=== PATIENT | female | born 1950 | race Caucasian/White ===

== ENCOUNTER → 2017-09-23 | Outpatient (CLI) | payer OTHER ==
[~2017-09-23] MED LIST: ALBU8.5H3 IH; AMLO5TAB2 PO; ASPI-555 PO; BUPR100T13 PO; CALC1TAB2 PO; ESTR42.53 VG; FLUT16H NS; LEVO125T11 PO; LOVA40TA2 PO; OMEP20CA10 PO; ROPI0.5T PO
== END ==
LOC: RAH 09:37
PROVIDERS: ATTEND Internal Medicine
DX: Z12.31 Encounter for screening mammogram for malignant neoplasm of breast (principal)
CPT/HCPCS: 77067

== ENCOUNTER → 2018-09-25 | Outpatient (CLI) | payer OTHER ==
[~2018-09-25] MED LIST changes: -AMLO5TAB2 PO; +AMLO5TAB9 PO
== END | disposition home or self-care (01) ==
LOC: RAH 13:16
PROVIDERS: ATTEND Internal Medicine
DX: Z12.31 Encounter for screening mammogram for malignant neoplasm of breast (principal)
CPT/HCPCS: 77067

== ENCOUNTER → 2018-10-03 | Outpatient (CLI) | payer OTHER | END | disposition home or self-care (01) | LOC: RAH 12:48 | PROVIDERS: ATTEND Internal Medicine | DX: N60.02 Solitary cyst of left breast (principal); N60.01 Solitary cyst of right breast | CPT/HCPCS: 76641 ==

== ENCOUNTER → 2018-12-06 | Outpatient (CLI) | payer OTHER | END | disposition home or self-care (01) | LOC: RAH 11:23 | PROVIDERS: ATTEND Internal Medicine | DX: R09.89 Other specified symptoms and signs involving the circulatory and respiratory systems (principal) | CPT/HCPCS: 93880 ==

== ENCOUNTER → 2019-09-26 | Outpatient (CLI) | payer OTHER ==
[~2019-09-26] MED LIST changes: -OMEP20CA10 PO; +OMEP20CA12 PO
== END | disposition home or self-care (01) ==
LOC: RAH 09:16
PROVIDERS: ATTEND Internal Medicine
DX: Z12.31 Encounter for screening mammogram for malignant neoplasm of breast (principal)
CPT/HCPCS: 77067

== ENCOUNTER 2020-11-03 18:55 | Emergency (ER) | payer MEDICARE, OTHER ==
[~2020-11-03 18:55] MED LIST changes: +AMLO-257 PO; -AMLO5TAB9 PO; -ASPI-555 PO; +ASPI-556 PO
[2020-11-03] MEDS ORDERED: ONDANSETRON HCL 4 MG/2 ML VIAL ONE (20:57)
[2020-11-03] MEDS ORDERED: MORPHINE SULFATE 2 MG/ML 1ML SYG ONE (20:58)
== END 2020-11-03 21:12 | disposition home or self-care (01) ==
LOC: EDH 18:55
DX: S42.202A Unspecified fracture of upper end of left humerus, initial encounter for closed fracture (principal); Z88.0 Allergy status to penicillin; Z88.8 Allergy status to other drugs, medicaments and biological substances; Z88.6 Allergy status to analgesic agent; W18.39XA Other fall on same level, initial encounter; Y93.01 Activity, walking, marching and hiking; Y92.098 Other place in other non-institutional residence as the place of occurrence of the external cause; Y99.8 Other external cause status
CPT/HCPCS: 73030; 96374; 96375; 99284; J2405

== ENCOUNTER → 2021-11-27 | Outpatient (CLI) | payer MEDICARE | LOC: RAH 09:34 | PROVIDERS: ATTEND Internal Medicine | DX: N60.02 Solitary cyst of left breast (principal) | CPT/HCPCS: 76641 ==

== ENCOUNTER → 2021-12-08 | Outpatient (CLI) | payer MEDICARE ==
[~2021-12-08] MED LIST changes: +LIDOCAINE HCL 1% 20 ML VIAL ONE
[2021-12-08 10:44] LABS: INR 0.94 (0.85-1.15); PROTHROMBIN TIME 10.3 SEC (9.6-11.6)
[2021-12-08 10:46] LABS: PARTIAL THROMBOPLASTIN TIME 27.9 SEC (26.3-35.5)
== END | disposition home or self-care (01) ==
LOC: RAH 09:22
PROVIDERS: ATTEND Internal Medicine
DX: N60.02 Solitary cyst of left breast (principal); Z79.01 Long term (current) use of anticoagulants; Z79.899 Other long term (current) drug therapy
CPT/HCPCS: 19000; 36415; 85610; 85730; 87071; 87205; 88112; 88305

== ENCOUNTER → 2022-09-03 | Outpatient (CLI) | payer MEDICARE ==
[~2022-09-03] MED LIST changes: -LIDOCAINE HCL 1% 20 ML VIAL ONE
[2022-09-03 12:02] LABS: CREATININE 0.8 mg/dL (0.5-1.5)
== END | disposition home or self-care (01) ==
LOC: LAB 11:18
PROVIDERS: ATTEND Internal Medicine Cardiovascular Disease
DX: I65.23 Occlusion and stenosis of bilateral carotid arteries (principal)
CPT/HCPCS: 36415; 82565; 84520

== ENCOUNTER → 2022-09-06 | Outpatient (CLI) | payer MEDICARE ==
[~2022-09-06] MED LIST changes: +IOHEXOL-350 50ML VIAL IV ONE
== END | disposition home or self-care (01) ==
LOC: RAH 10:32
PROVIDERS: ATTEND Internal Medicine Cardiovascular Disease
DX: I65.23 Occlusion and stenosis of bilateral carotid arteries (principal)
CPT/HCPCS: 70498; Q9967

== ENCOUNTER → 2023-01-24 | Outpatient (CLI) | payer MEDICARE ==
[~2023-01-24] MED LIST changes: -IOHEXOL-350 50ML VIAL IV ONE
== END | disposition home or self-care (01) ==
LOC: RAH 11:34
PROVIDERS: ATTEND Internal Medicine
DX: Z12.31 Encounter for screening mammogram for malignant neoplasm of breast (principal)
CPT/HCPCS: 77067

== ENCOUNTER 2023-06-15 16:13 | Observation (INO) | payer MEDICARE ==
[~2023-06-15] VITALS: Ht 165.1 cm; Wt 79.1 kg
[2023-06-15 17:46] LABS: BASOPHILS # (AUTO) 0.02 K/uL (0.00-0.20); BASOPHILS % (AUTO) 0.3 % (0.0-5.0); EOSINOPHILS # (AUTO) 0.18 K/uL (0.00-0.70); EOSINOPHILS % (AUTO) 2.3 % (0.0-8.0); HEMATOCRIT 30.8 % (36-48); IMMATURE GRANULOCYTE ABSOLUTE 0.02 K/uL (0-1); LYMPHOCYTES # (AUTO) 1.3 K/uL (1.0-4.8); LYMPHOCYTES % (AUTO) 16.8 % (21.0-51.0); MEAN CORPUSCULAR HEMOGLOBIN 30.2 pg (27.0-33.0); MEAN CORPUSCULAR HGB CONC 33.8 g/dL (32.0-36.0); MEAN CORPUSCULAR VOLUME 89.5 fL (79-99); MONOCYTES # (AUTO) 0.7 K/uL (0.1-1.0); MONOCYTES % (AUTO) 8.5 % (3.0-13.0); NEUTROPHILS # (AUTO) 5.5 K/uL (1.8-7.7); NEUTROPHILS % (AUTO) 71.8 % (40.0-77.0); PLATELET COUNT (AUTO) 293 K/uL (130-400); RED BLOOD CELL COUNT(AUTO) 3.44 MIL/uL (4.00-5.50); RED CELL DISTRIBUTION WIDTH 12.5 % (11.0-15.5); WHITE BLOOD COUNT (AUTO) 7.7 K/uL (4.8-10.8)
[2023-06-15 18:02] LABS: CREATININE 0.8 mg/dL (0.5-1.5); POTASSIUM 3.8 mmol/L (3.5-5.1)
[2023-06-15 18:11] LABS: ALBUMIN 3.4 g/dL (3.5-5.0); BILIRUBIN,TOTAL 0.2 mg/dL (0.2-1.0); TOTAL PROTEIN, SERUM 7.1 g/dL (6.0-8.3)
[2023-06-15] MEDS ORDERED: ONDANSETRON 4MG INJ IVP PRN (18:30)
[2023-06-15] MEDS ORDERED: ACETAMINOPHEN 325 MG TAB PO PRN (18:30)
[2023-06-15 21:30] VITALS: BP 175/83; PULSE 60; RESP 18
[2023-06-15 21:35] VITALS: O2SAT 99
[2023-06-15] MEDS ORDERED: LEVO125C4 PO (21:55)
[2023-06-15] MEDS ORDERED: ROSU20TA73 PO (21:55)
[2023-06-15] MEDS ORDERED: ALEN35TA53 PO (21:55)
[2023-06-15] MEDS ORDERED: MONT-39 PO (21:55)
[2023-06-15] MEDS ORDERED: APIX5TAB PO (21:55)
[2023-06-15] MEDS ORDERED: METO-409 PO (21:55)
[2023-06-15] MEDS ORDERED: SERT-440 PO (21:56)
[2023-06-15 22:45] VITALS: BP 139/65; PULSE 70; RESP 20
[2023-06-16 00:20] VITALS: BP 137/62; PULSE 60; RESP 18
[2023-06-16 03:58] VITALS: BP 137/63; PULSE 54; RESP 18
[2023-06-16 05:38] LABS: BASOPHILS # (AUTO) 0.02 K/uL (0.00-0.20); BASOPHILS % (AUTO) 0.4 % (0.0-5.0); EOSINOPHILS # (AUTO) 0.17 K/uL (0.00-0.70); EOSINOPHILS % (AUTO) 3.2 % (0.0-8.0); HEMATOCRIT 31.5 % (36-48); IMMATURE GRANULOCYTE ABSOLUTE 0.01 K/uL (0-1); LYMPHOCYTES # (AUTO) 1.7 K/uL (1.0-4.8); LYMPHOCYTES % (AUTO) 32.1 % (21.0-51.0); MEAN CORPUSCULAR HEMOGLOBIN 30.2 pg (27.0-33.0); MEAN CORPUSCULAR VOLUME 91.6 fL (79-99); MONOCYTES # (AUTO) 0.5 K/uL (0.1-1.0); MONOCYTES % (AUTO) 10.1 % (3.0-13.0); NEUTROPHILS # (AUTO) 2.9 K/uL (1.8-7.7); PLATELET COUNT (AUTO) 279 K/uL (130-400); RED BLOOD CELL COUNT(AUTO) 3.44 MIL/uL (4.00-5.50); RED CELL DISTRIBUTION WIDTH 12.3 % (11.0-15.5); WHITE BLOOD COUNT (AUTO) 5.4 K/uL (4.8-10.8)
[2023-06-16 05:55] LABS: CREATININE 0.7 mg/dL (0.5-1.5); POTASSIUM 3.5 mmol/L (3.5-5.1)
[2023-06-16 08:00] VITALS: BP 146/67; PULSE 56; RESP 17; O2SAT 94
[2023-06-16] MEDS ORDERED: OMEP40CA21 PO (08:47)
[2023-06-16] MEDS ORDERED: BRIN15DR4 OP (08:47)
[2023-06-16] MEDS ORDERED: ESTR42.53 VG (08:47)
[2023-06-16] MEDS ORDERED: ALBU90AE IH (08:47)
[2023-06-16] MEDS ORDERED: LEVO125C4 PO ×2 (08:48→14:29)
[2023-06-16] MEDS ORDERED: BRIM155OS OD (08:49)
[2023-06-16] MEDS ORDERED: METOPROLOL TARTRATE 50 MG TAB PO SCH (09:00)
[2023-06-16] MEDS ORDERED: NON-FORMULARY MEDICATION 1 EACH (Omeprazole 40 MG) PO PRN (09:30)
[2023-06-16] MEDS ORDERED: PANTOPRAZOLE 40 MG TAB DR PO PRN (10:30)
[2023-06-16] MEDS ORDERED: ALBUTEROL SULFATE IH PRN (10:30)
[2023-06-16 11:17] VITALS: BP 150/65; PULSE 61; RESP 17
[2023-06-16] MEDS ORDERED: VIT1CAPS47 PO (14:29)
[2023-06-16] MEDS ORDERED: OMEP20CA12 PO (14:29)
[2023-06-16] MEDS ORDERED: METOPROLOL SUCCINATE 50 MG TAB.SR.24H PO SCH (21:00)
[2023-06-16] MEDS ORDERED: NON-FORMULARY MEDICATION 1 EACH (Metoprolol Succinate 1 TAB) PO SCH (21:00)
[2023-06-16] MEDS ORDERED: MONTELUKAST SODIUM 10 MG TAB PO SCH (21:00)
[2023-06-16] MEDS ORDERED: APIXABAN 5 MG TABLET PO SCH (21:00)
[2023-06-16] MEDS ORDERED: NON-FORMULARY MEDICATION 1 EACH (Rosuvastatin Calcium 1 TAB) PO SCH (21:00)
[2023-06-16] MEDS ORDERED: CRESTOR 20MG PO SCH (21:00)
[2023-06-16] MEDS ORDERED: NON-FORMULARY MEDICATION 1 EACH (Sertraline HCl 1 TAB) PO SCH (21:00)
[2023-06-17] MEDS ORDERED: LEVOTHYROXINE 125 MCG TABLET PO SCH (06:30)
[2023-06-17] MEDS ORDERED: SERTRALINE HCL 50 MG TABLET PO SCH (09:00)
[2023-06-18] MEDS ORDERED: LEVOTHYROXINE 125 MCG TABLET PO SCH (06:30)
[2023-06-23] MEDS ORDERED: ALENDRONATE SODIUM 35 MG TAB PO SCH (09:00)
== END 2023-06-16 14:55 | disposition home or self-care (01) ==
LOC: EDH 16:13 → EDHIP 18:08 → 3BH 21:13
PROVIDERS: ADMIT Internal Medicine; ATTEND Internal Medicine
DX: S00.93XA Contusion of unspecified part of head, initial encounter (principal); S06.0XAA Concussion with loss of consciousness status unknown, initial encounter; I48.19 Other persistent atrial fibrillation; J45.909 Unspecified asthma, uncomplicated; K21.9 Gastro-esophageal reflux disease without esophagitis; I25.10 Atherosclerotic heart disease of native coronary artery without angina pectoris; E78.5 Hyperlipidemia, unspecified; G47.33 Obstructive sleep apnea (adult) (pediatric); I13.10 Hypertensive heart and chronic kidney disease without heart failure, with stage 1 through stage 4 chronic kidney disease, or unspecified chronic kidney disease; E11.22 Type 2 diabetes mellitus with diabetic chronic kidney disease; M81.0 Age-related osteoporosis without current pathological fracture; N18.9 Chronic kidney disease, unspecified; W18.30XA Fall on same level, unspecified, initial encounter; Y93.89 Activity, other specified; Y92.89 Other specified places as the place of occurrence of the external cause; Y99.8 Other external cause status; Z79.01 Long term (current) use of anticoagulants; Z79.82 Long term (current) use of aspirin; Z88.0 Allergy status to penicillin; Z95.818 Presence of other cardiac implants and grafts; Z79.899 Other long term (current) drug therapy
CPT/HCPCS: 96374; 99284; 84484; 80053; 85025 ×2; 36415 ×2; 70450 ×2; 80048; G0378 ×21; J2405

== ENCOUNTER 2023-06-17 07:38 | Day surgery (SDC) | payer MEDICARE ==
[2023-06-14 10:19] LABS: BASOPHILS # (AUTO) 0.03 K/uL (0.00-0.20); BASOPHILS % (AUTO) 0.6 % (0.0-5.0); EOSINOPHILS # (AUTO) 0.19 K/uL (0.00-0.70); EOSINOPHILS % (AUTO) 3.7 % (0.0-8.0); HEMATOCRIT 33.7 % (36-48); IMMATURE GRANULOCYTE ABSOLUTE 0.02 K/uL (0-1); LYMPHOCYTES # (AUTO) 1.5 K/uL (1.0-4.8); MEAN CORPUSCULAR HEMOGLOBIN 30.7 pg (27.0-33.0); MEAN CORPUSCULAR HGB CONC 33.2 g/dL (32.0-36.0); MEAN CORPUSCULAR VOLUME 92.3 fL (79-99); MONOCYTES # (AUTO) 0.5 K/uL (0.1-1.0); MONOCYTES % (AUTO) 10.4 % (3.0-13.0); NEUTROPHILS % (AUTO) 56.9 % (40.0-77.0); PLATELET COUNT (AUTO) 313 K/uL (130-400); RED BLOOD CELL COUNT(AUTO) 3.65 MIL/uL (4.00-5.50); RED CELL DISTRIBUTION WIDTH 12.4 % (11.0-15.5); WHITE BLOOD COUNT (AUTO) 5.2 K/uL (4.8-10.8)
[2023-06-14 10:29] LABS: POTASSIUM 4.5 mmol/L (3.5-5.1)
[2023-06-14 10:30] LABS: CREATININE 0.7 mg/dL (0.5-1.5)
[2023-06-14 10:33] LABS: INR 0.94 (0.85-1.15)
[2023-06-14 10:34] LABS: PARTIAL THROMBOPLASTIN TIME 32.5 SEC (26.3-35.5)
[2023-06-14 10:45] LABS: B-TYPE NATRIURETIC PEPTIDE 152 pg/mL (0-100)
[2023-06-16 14:31] VITALS: BP 180/89; PULSE 63; RESP 18
[~2023-06-17] VITALS: Ht 165.1 cm; Wt 78.9 kg
[2023-06-17] VITALS (10 sets, daily range): BP systolic 148–179; BP diastolic 67–82; PULSE 59–68; RESP 14–18
[~2023-06-17 07:38] MED LIST changes: -ALBU8.5H3 IH; +ALEN35TA53 PO; -AMLO-257 PO; +APIX5TAB PO; -ASPI-556 PO; -BUPR100T13 PO; -CALC1TAB2 PO; -ESTR42.53 VG; -FLUT16H NS; +LEVO125C4 PO; -LEVO125T11 PO; -LOVA40TA2 PO; +METO-409 PO; +MONT-39 PO; -ROPI0.5T PO; +ROSU20TA73 PO; +SERT-440 PO; +VIT1CAPS47 PO
[2023-06-17] MEDS ORDERED: LIDOCAINE HCL 2% VISCOUS 15 ML UDCUP ONE (10:30)
[2023-06-17] MEDS ORDERED: PROPOFOL 10 MG/ML 20ML VIAL IV ONE (10:45)
[2023-06-17] MEDS ORDERED: 0.9%NACL 1000ML 1,000 ML IV ONE (10:45)
== END 2023-06-17 12:35 | disposition home or self-care (01) ==
LOC: DAH 07:38 → EDSTATUS 08:00 → DAH 12:35
PROVIDERS: ATTEND Internal Medicine Interventional Cardiology
DX: I48.11 Longstanding persistent atrial fibrillation (principal); I10 Essential (primary) hypertension; E03.9 Hypothyroidism, unspecified; E78.2 Mixed hyperlipidemia; E66.9 Obesity, unspecified; I73.9 Peripheral vascular disease, unspecified; G60.8 Other hereditary and idiopathic neuropathies; M79.609 Pain in unspecified limb; Z98.890 Other specified postprocedural states; Z79.890 Hormone replacement therapy; Z88.0 Allergy status to penicillin; Z88.8 Allergy status to other drugs, medicaments and biological substances; Z90.710 Acquired absence of both cervix and uterus; Z98.51 Tubal ligation status; Z79.899 Other long term (current) drug therapy; Z79.01 Long term (current) use of anticoagulants; Z68.29 Body mass index [BMI] 29.0-29.9, adult
CPT/HCPCS: 80048; 83880; 85025; 85610; 85730; 36415; 93005; 93325; 93312; J7030; J2704; A4620; A4615; A4215; A4223 ×3; A7002; A4222; A4221; A4663; A4216; A4606; J3490

== ENCOUNTER 2023-11-13 12:20 | Emergency (ER) | payer MEDICARE ==
[2023-11-13 12:21] VITALS: BP 119/63; PULSE 66; RESP 16
[2023-11-13] MEDS: IBUPROFEN 600 MG TABLET PO ONE (12:50)
[2023-11-13] MEDS ORDERED: IBUP-2070 PO (13:38)
[2023-11-16] MEDS ORDERED: METO-391 PO (11:57)
[2023-11-16] MEDS ORDERED: LISI10TA24 PO (11:57)
[2023-11-16] MEDS ORDERED: LEVO125C4 PO (11:59)
== END 2023-11-13 13:51 | disposition home or self-care (01) ==
LOC: EDH 12:20
DX: S63.501A Unspecified sprain of right wrist, initial encounter (principal); E11.9 Type 2 diabetes mellitus without complications; I10 Essential (primary) hypertension; I48.91 Unspecified atrial fibrillation; Z79.01 Long term (current) use of anticoagulants; Z88.0 Allergy status to penicillin; W18.09XA Striking against other object with subsequent fall, initial encounter; Y93.89 Activity, other specified; Y92.89 Other specified places as the place of occurrence of the external cause; Y99.8 Other external cause status
CPT/HCPCS: 73100; 73120

== ENCOUNTER → 2024-03-14 | Outpatient (CLI) | payer MEDICARE ==
[~2024-03-14] MED LIST changes: -APIX5TAB PO; +LISI10TA24 PO; +METO-391 PO; -METO-409 PO
== END | disposition home or self-care (01) ==
LOC: RAH 13:31
PROVIDERS: ATTEND Internal Medicine
DX: Z12.31 Encounter for screening mammogram for malignant neoplasm of breast (principal)
CPT/HCPCS: 77067

== ENCOUNTER → 2024-11-15 | Outpatient (CLI) | payer MEDICARE ==
[~2024-11-15] MED LIST changes: -LEVO125C4 PO; +LEVO125C5 PO; -ROSU20TA73 PO; +ROSU20TA98 PO
--- NOTE | 2024-11-15 16:32 | HMCIMG ---
DEXA BONE DENSITY SURVEY HISTORY: Osteoporosis COMPARISON: None FINDINGS: Bone densitometry study was performed. Bone mineral density of the lumbar spine is 0.892 gram per centimeter square which corresponds to a T score of -1.4 and a Z score of 0.9. Bone mineral density of the left hip is 0.762 grams per centimeter square which corresponds to a T score of -1.5 and a Z score of 0.2. IMPRESSION: 1. Osteopenia of the lumbar spine and left hip.
== END | disposition home or self-care (01) ==
LOC: RAH 14:30
PROVIDERS: ATTEND Internal Medicine
DX: Z13.820 Encounter for screening for osteoporosis (principal); M81.0 Age-related osteoporosis without current pathological fracture; M85.89 Other specified disorders of bone density and structure, multiple sites
CPT/HCPCS: 77080

== ENCOUNTER → 2025-04-09 | Outpatient (CLI) | payer MEDICARE ==
--- NOTE | 2025-04-10 14:59 | HMCIMG ---
BILATERAL BREAST ULTRASOUND: Finding: Real-time examination of the both breasts demonstrates heterogeneous echotexture throughout both the breasts without evidence of focal solid masses. The right breast appears to be dense along the left breast with no nodule seen on the right breast or cyst seen. The left breast has no nodules seen but there are multiple cysts seen at 1:00 there is a cyst measuring 0.5 x 0.4 cm the left breast at 5:00 there is a cyst measuring 0.3 x 0.3 cm. The left breast at 5:00 there is a cyst within 0.3 x 0.3 cm. Left breast at 8:00 there is a complex cyst measuring 0.7 x 0.6 cm. This is unchanged from prior study from 11/27/2021. IMPRESSION: No solid hypoechoic nodules seen in either breast Left breast has fibrocystic changes I would recommend annual mammography with tomography with bilateral breast sonogram. FINAL ASSESSMENT: ACR: BI-RAD- 2. Benign: Also a negative assessment; finding(s) benign abnormalities. Management: Routine mammography screening. Likelihood of Cancer: Essentially 0% likelihood of malignancy.
== END | disposition home or self-care (01) ==
LOC: RAH 07:41
PROVIDERS: ATTEND Internal Medicine
DX: N60.12 Diffuse cystic mastopathy of left breast (principal); N60.02 Solitary cyst of left breast; R92.2 Inconclusive mammogram